=== PATIENT | male | born 1990 ===

== ENCOUNTER 2022-05-23 15:11 | Outpatient (CLI) | payer BC ==
[~2022-05-23 15:11] MED LIST: Iopamidol 300 61% 100 ML VIAL FS ONE
== END 2022-05-23 15:12 | disposition home or self-care (01) ==
LOC: CSHCT 15:11
PROVIDERS: ATTEND Internal Medicine Cardiovascular Disease
DX: H53.8 Other visual disturbances (principal)
CPT/HCPCS: 70470; Q9967